=== PATIENT | female | born 1980 | race Caucasian/White ===

== ENCOUNTER → 2019-04-16 | Outpatient (CLI) | payer OTHER ==
--- NOTE | 2019-04-16 11:46 | CARD ---
MR#: [id number] Date of Study: 04/16/2019 Ordering Physician: MANNIE LIVE, Referring Physician: MANNIE LIVE, Tech: Mary Ann Hyatt RDCS APPROVED REPORT EXAM: Two-dimensional and M-mode echocardiogram with Doppler and color Doppler. Other Information Quality : Good INDICATION Dyspnea Chest Pain 2D DIMENSIONS RVDd2.2 (2.9-3.5cm)Left Atrium(2D)2.4 (1.6-4.0cm) IVSd1.0 (0.7-1.1cm)Aortic Root(2D)2.7 (2.0-3.7cm) LVDd4.3 (3.9-5.9cm)LVOT Diameter2.0 (1.8-2.4cm) PWd0.9 (0.7-1.1cm)LVDs2.9 (2.5-4.0cm) FS (%) 32.7 %SV49.9 ml LVEF(%)61.4 (>50%) Aortic Valve AoV Peak Raul.132.6cm/sAoV VTI25.5cm AO Peak GR.7.0mmHgLVOT Peak Raul.111.8cm/s LVOT VTI 22.33cmAO Mean GR.4mmHg DUNCAN (VMAX)2.39wg8WLH (VTI)2.76cm2 Mitral Valve MV E Xacnlkhi07.9cm/sMV DECEL [id number] MV A Rtkflzug26.3cm/sMV OEU20jm E/A Ratio1.2MVA (PHT)2.82cm2 TDI E/Lateral E'3.9E/Medial E'5.3 Pulmonary Vein S1 Enltoftj93.4cm/sD2 Wjcfvrcr76.6cm/s LEFT VENTRICLE The left ventricle is normal size. There is normal left ventricular wall thickness. The left ventricu lar systolic function is normal. The Ejection Fraction is 55-60%. There is normal LV segmental wall m otion. The left ventricular diastolic function and filling is normal for age. RIGHT VENTRICLE The right ventricle is normal size. The right ventricular systolic function is normal. ATRIA The left atrium size is normal. The right atrium size is normal. The interatrial septum is intact wit h no evidence for an atrial septal defect or patent foramen ovale as noted on 2-D or Doppler imaging. AORTIC VALVE The aortic valve is normal in structure and function. Doppler and Color Flow revealed no significant aortic regurgitation. There is no significant aortic valvular stenosis. MITRAL VALVE The mitral valve is normal in structure and function. There is no evidence of mitral valve prolapse. There is no mitral valve stenosis. Doppler and Color Flow revealed no mitral valve regurgitation note d. TRICUSPID VALVE The tricuspid valve is normal in structure and function. Doppler and Color Flow revealed no tricuspid valve regurgitation noted. There is no tricuspid valve stenosis. PULMONIC VALVE The pulmonary valve is normal in structure and function. Doppler and Color Flow revealed trace pulmon ic valvular regurgitation. There is no pulmonic valvular stenosis. GREAT VESSELS The aortic root is normal in size. The ascending aorta is normal in size. The IVC is normal in size a nd collapses >50% with inspiration. PERICARDIAL EFFUSION There is no evidence of significant pericardial effusion. Critical Notification Critical Value: No <Conclusion> The left ventricular systolic function is normal. The Ejection Fraction is 55-60%. There is normal LV segmental wall motion. There is no evidence of significant pericardial effusion. Signed by : Philip Maria, Electronically Approved : 04/16/2019 11:46:39
--- NOTE | 2019-04-16 12:58 | RAD ---
MR#: [id number] Date of Study: 04/16/2019 Ordering Physician: MANNIE LIVE Referring Physician: MALCOLM HERNANDEZ Tech: APPROVED REPORT Test Type: Exercise Stress Nurse/Tech: Rosana Herrera RN Test Indications: SOA, Chest pain - dull ache. Cardiac History: No known cardiac Medications: See Electronic Medical Record Medical History: See Electronic Medical Record Resting ECG: SR Resting Heart Rate: 87 bpm Resting Blood Pressure: 123/84mmHg Pretest Chest Pain: No chest pain Nurse/Tech Notes S1S2, Lungs CTA Consent: The procedure was explained to the patient in lay terms. Informed consent was witnessed. Taz eout was entered into [email or web address]. History and Stress Test performed by RT Mayuri (R) (N) Stress Symptoms SOA POST EXERCISE Reason for Termination: Dyspnea Target HR: 154 Max HR: 170 bpm 120% of Maximum Predicted HR: 154 bpm Exercise duration: 7:04 min:sec, 3 Stage Exercise capacity: 10.0METs Max Blood Pressure: 128/80mmHg Blood Pressure response to exercise: Normal blood pressure response during stress. Heart Rate response to exercise: Normal Chest Pain: No. Arrhythmia: No. ST Change: No. INTERPRETATION Stress EKG Conclusion: No evidence of sichemia Other Information Quality:Average Overall Exercise Capacity: Average Risk Assessment: Low Risk Conclusion 1. Baseline EKG with SR and non-specific st/t changes. No ischemia 2. Average exercise capacity with approximately 10 METS achieved on a Eligio protocol 3. No evidence of ischemia on EKG at peak stress. 4. Blunted blood pressure response 5. Overall low risk study. Signed by : Deven Gomes, Electronically Approved : 04/16/2019 12:58:11
== END | disposition home or self-care (01) ==
LOC: NM 09:28
PROVIDERS: ATTEND Internal Medicine Pulmonary Disease
DX: R07.9 Chest pain, unspecified (principal); R06.02 Shortness of breath; R06.00 Dyspnea, unspecified
CPT/HCPCS: 93017; 93306

== ENCOUNTER → 2019-04-23 | Outpatient (CLI) | payer OTHER ==
[2019-04-23 10:04] LABS: BASO % 0 % (0-3); EOS # 0.1 x10^3/uL (0.0-0.7); EOS % 1 % (0-3); HEMATOCRIT 37.7 % (36.0-47.0); LYMPH # 1.6 x10^3/uL (1.0-4.8); LYMPH % 28 % (24-48); MEAN CORPUSCULAR HEMOGLOBIN 30 pg (25-35); MEAN CORPUSCULAR HGB CONC 35 g/dL (31-37); MEAN CORPUSCULAR VOLUME 88 fL (79-100); MONO # 0.5 x10^3/uL (0.0-1.1); MONO % 8 % (0-9); NEUT # 3.6 x10^3/uL (1.8-7.7); NEUT % 63 % (31-73); PLATELET COUNT 186 x10^3/uL (140-400); RED CELL DISTRIBUTION WIDTH 13.2 % (11.5-14.5); WHITE BLOOD COUNT 5.7 x10^3/uL (4.0-11.0)
== END | disposition home or self-care (01) ==
LOC: LAB 09:34
PROVIDERS: ATTEND Internal Medicine Pulmonary Disease
DX: R06.02 Shortness of breath (principal)
CPT/HCPCS: 36415; 84443; 85025